=== PATIENT | male | born 1945 | race Caucasian/White ===

== ENCOUNTER 2018-06-06 10:48 | Emergency (ER) | payer OTHER ==
--- NOTE | 2018-06-06 11:19 | CPEKG ---
Test Reason : OPEN Blood Pressure : / mmHG Vent. Rate : 060 BPM Atrial Rate : 059 BPM P-R Int : 155 ms QRS Dur : 100 ms QT Int : 399 ms P-R-T Axes : 062 099 064 degrees QTc Int : 399 ms Sinus rhythm Consider right ventricular hypertrophy Confirmed by Kp Mayer ([id number]) on 06/06/2018 11:19:23 AM Referred By: Confirmed By:Kp Mayer
[2018-06-06 11:27] LABS: PLATELET COUNT 263 10^3/uL (150-400)
[2018-06-06 11:34] LABS: INR 1.02 (0.83-1.16); PROTIME(PATIENT) 13.6 SEC (12.0-15.0)
--- NOTE | 2018-06-06 11:39 | EDPHY ---
H & P Stated Complaint: L CP x 15 years-worse past few days--lung nodules on CT Time Seen by Provider: 06/06/18 11:16 HPI/ROS: CHIEF COMPLAINT: Pleuritic chest pain HISTORY OF PRESENT ILLNESS: Patient is a 73-year-old who comes to the emergency department complaining of pleuritic chest pain for the last 3 and half days. He did have a viral type infection about 3 weeks ago that is now improved however he does have a dry cough. No shortness of breath but does have pain with deep inspiration. It is not worsened by exertion. No nausea vomiting. He reports that he has a history of chronic chest pain for the last several decades. He has had multiple cardiac workups all of which have been negative. He had a CT of his chest a few months ago on reports that he had some pulmonary nodules but nothing else significant. He states however that his chronic pain worsens slightly on Monday. No fevers. No recent travel. No leg pain or swelling. Severity: Mild Modifying factors: Worse with deep inspiration REVIEW OF SYSTEMS: Constitutional: denies: chills, fever, recent illness, recent injury EENTM: denies: blurred vision, double vision, nose congestion Respiratory: denies: cough, shortness of breath Cardiac: denies: chest pain, irregular heart rate, lightheadedness, palpitations Gastrointestinal/Abdominal: denies: abdominal pain, diarrhea, nausea, vomiting, blood streaked stools Genitourinary: denies: dysuria, frequency, hematuria, pain Musculoskeletal: denies: joint pain, muscle pain Skin: denies: lesions, rash, jaundice, bruising Neurological: denies: headache, numbness, paresthesia, tingling, dizziness, weakness Hematologic/Lymphatic: denies: blood clots, easy bleeding, easy bruising Immunologic/allergic: denies: HIV/AIDS, transplant 10 systems reviewed and negative except as noted EXAM: GENERAL: Well-appearing, well-nourished and in no acute distress. Reading a novel HEAD: Atraumatic, normocephalic. EYES: Pupils equal round and reactive to light, extraocular movements intact, sclera anicteric, conjunctiva are normal. ENT: TMs normal, nares patent, oropharynx clear without exudates. Moist mucous membranes. NECK: Normal range of motion, supple without lymphadenopathy or JVD. LUNGS: Breath sounds clear to auscultation bilaterally and equal. No wheezes rales or rhonchi. HEART: Regular rate and rhythm without murmurs, rubs or gallops. Chest pain not reproducible with palpation. ABDOMEN: Soft, nontender, normoactive bowel sounds. No guarding, no rebound. No masses appreciated. BACK: No CVA tenderness, no spinal tenderness, step-offs or deformities EXTREMITIES: Normal range of motion, no pitting or edema. No clubbing or cyanosis. NEUROLOGICAL: Cranial nerves II through XII grossly intact. Normal speech, normal gait. 5/5 strength, normal movement in all extremities, normal sensation , normal reflexes PSYCH: Normal mood, normal affect. SKIN: Warm, dry, normal turgor, no visible rashes or lesions. Source: Patient Exam Limitations: No limitations - Medical/Surgical History Hx Asthma: No Hx Chronic Respiratory Disease: No Hx Diabetes: No Hx Cardiac Disease: No Hx Renal Disease: No Hx Cirrhosis: No Hx Alcoholism: No Hx HIV/AIDS: No Hx Splenectomy or Spleen Trauma: No Other PMH: BPH. bipolar - Family History Significant Family History: No pertinent family hx - Social History Smoking Status: Never smoked Alcohol Use: Sober Drug Use: None Constitutional: Initial Vital Signs Temperature (C) 36.7 C 06/06/18 10:51 Heart Rate 68 06/06/18 10:51 Respiratory Rate 16 06/06/18 10:51 Blood Pressure 139/70 H 06/06/18 10:51 O2 Sat (%) 97 06/06/18 10:51 O2 Delivery Mode Room Air Allergies/Adverse Reactions: No Known Allergies Allergy (Unverified 06/06/18 10:50) Home Medications: Medication Instructions Recorded Azithromycin [Zithromax] 250 mg PO DAILY #6 tab 06/06/18 Finasteride 06/06/18 Levothyroxine 06/06/18 [place] Carbonate 06/06/18 Wellbutrin Sr 06/06/18 Medical Decision Making - Diagnostics EKG Interpretation: An EKG obtained and was read and documented in trace view. Please see trace view for full reading and report. Sinus rhythm, no acute ischemic changes, no signs of right heart strain Imaging: Discussed imaging studies w/ call center nurse Radiologist ED Course/Re-evaluation: Patient's lab work is reassuring. His x-rays consistent with mild bronchitis. This fits with his pleuritic pain and slightly elevated white count. He states he has had a persistent cough productive of white sputum. I suspect that this is post viral or viral but have agreed to prescribe him a course of azithromycin if his symptoms worsen or do not improve. He is happy with this plan and declines further workup or testing at this time. He is eager to go home. Differential Diagnosis: Partial list of the Differential diagnosis considered include but were not limited to; bronchitis, pleurisy, musculoskeletal pain and although unlikely based on the history and physical exam, I also considered PE, dissection, pneumothorax, pneumonia, acute coronary disease. I discussed these differential diagnoses and the plan with the patient as well as the usual and expected course. The patient understands that the diagnosis is provisional and that in medicine we are not always correct and that further workup is often warranted. Usual and customary warnings were given. All of the patient's questions were answered. The patient was instructed to return to the emergency department should the symptoms at all worsen or return, otherwise to followup with the physician as we discussed. - Data Points Laboratory Results: Laboratory Results 06/06/18 11:01 06/06/18 11:01 Point of Care Test Results: Chemistry 06/06/18 11:17 POC Troponin I 0.00 ng/mL ng/mL (0.00-0.08) Departure - Departure Disposition: Home, Routine, Self-Care Clinical Impression: Bronchitis Condition: Fair Instructions: Acute Bronchitis (ED) Referrals: NONE *PRIMARY CARE P,. [Primary Care Provider] - As per Instructions Prescriptions: Azithromycin [Zithromax] 250 mg PO DAILY #6 tab
[2018-06-06 13:54] VITALS: BP 123/56
== END 2018-06-06 13:57 | disposition home or self-care (01) ==
DX: J40 Bronchitis, not specified as acute or chronic (principal)
CPT/HCPCS: 84484-PO

== ENCOUNTER 2018-10-08 00:32 | Observation (INO) | payer OTHER ==
[2018-10-08 01:29] LABS: PLATELET COUNT 217 10^3/uL (150-400)
[2018-10-08] MEDS ORDERED: ONDANSETRON 4 MG/2 ML VIAL IVP ONE (01:38)
[2018-10-08] MEDS ORDERED: HYDROmorphONE/DILAUDID 2 MG/ML INJ IVP ONE (01:38)
[2018-10-08] MEDS ORDERED: NS 1,000 ML IV ONE (01:38)
[2018-10-08] MEDS ORDERED: IOPAMIDOL (ISOVUE-300) 100 ML BTL ONE (01:50)
--- NOTE | 2018-10-08 03:18 | EDPHY ---
H & P Stated Complaint: ABD PAIN @2030 Time Seen by Provider: 10/08/18 01:06 HPI/ROS: HPI The patient presents with abdominal pain which began at about 8:30 p.m. Tonight and started fairly suddenly. The patient ate dinner in between 6 and 630. At about 8:30 p.m. he developed dull diffuse abdominal pain which was achy in nature and constant. It was fairly severe, associated with nausea and small amount of vomiting. He tried to have a bowel movement, though was only able to have a small 1. He called 911 and received fentanyl in route with some improvement in his symptoms. However, now that he has been in the emergency department for about 45 min, his pain has returned. He has no prior history of similar. He has not had a fever. He had been feeling well earlier in the day.. REVIEW OF SYSTEMS 10 systems were reviewed and negative with the exception of the elements mentioned in the history of present illness. PMHx: BPH, history of depression Soc Hx: [facility]oused, [facility] patient, no drug use, no smoking PHYSICAL General Appearance: Alert, no distress Eyes: Pupils equal and round no pallor or injection ENT, Mouth: Mucous membranes moist Respiratory: There are no retractions, lungs are clear to auscultation Cardiovascular: Regular rate and rhythm Gastrointestinal: Abdomen is slightly distended with guarding and tenderness in the right upper quadrant and right lower quadrant Neurological: A&O, moves all extremities Skin: Warm and dry, no rashes Musculoskeletal: Neck is supple non tender Extremities: symmetrical, full range of motion Psychiatric: Patient is oriented X 3, there is no agitation Source: Patient Exam Limitations: No limitations - Personal History Current Tetanus/Diphtheria Vaccine: Unsure - Medical/Surgical History Hx Asthma: No Hx Chronic Respiratory Disease: No Hx Diabetes: No Hx Cardiac Disease: No Hx Renal Disease: No Hx Cirrhosis: No Hx Alcoholism: No Hx HIV/AIDS: No Hx Splenectomy or Spleen Trauma: No Other PMH: BPH. bipolar. depression. appy - Social History Smoking Status: Never smoked Constitutional: Initial Vital Signs Temperature (C) 36.3 C 10/08/18 00:33 Heart Rate 51 L 10/08/18 00:33 Respiratory Rate 20 10/08/18 00:33 Blood Pressure 135/73 H 10/08/18 00:33 O2 Sat (%) 97 10/08/18 00:33 O2 Delivery Mode Room Air Allergies/Adverse Reactions: No Known Allergies Allergy (Unverified 06/06/18 10:50) Home Medications: Medication Instructions Recorded Finasteride 06/06/18 Levothyroxine 06/06/18 [place] Carbonate 06/06/18 Wellbutrin Sr 06/06/18 Flonase Nasal [place] 10/08/18 Trospium Chloride 10/08/18 Medical Decision Making - Diagnostics Imaging Results: CT abdomen and pelvis with IV contrast demonstrates cholelithiasis with without gross inflammation of gallbladder, 3 mm pulmonary nodule in the left lower lobe , interpreted by direct Radiology. Imaging: Discussed imaging studies w/ on call pharmacy technician Radiologist Differential Diagnosis: 73-year-old man presents with several hours of dull abdominal pain associated with nausea and vomiting. On exam, he is mostly tender in the right side of his abdomen with guarding. Differential diagnosis includes cholecystitis, appendicitis, diverticulitis, less likely AAA. In the emergency department, labs were checked and did reveal a leukocytosis. Liver tests were normal. Patient received additional Dilaudid and Zofran with some improvement in his symptoms. CT scan revealed gallstones, thus right upper quadrant ultrasound was performed. This was consistent with cholecystitis. Patient was reassessed, his pain persists. I feel he should be admitted for cholecystitis. Case discussed with Dr. Guadarrama of surgery. Patient given antibiotics. Bed was ordered for the patient and he was kept NPO. - Data Points Laboratory Results: Laboratory Results 10/07/18 22:10 10/07/18 01:24 10/08/18 10/07/18 10/07/18 01:20 22:10 01:40 WBC 15.86 10^3/uL H 10^3/uL (3.80-9.50) RBC 4.33 10^6/uL L 10^6/uL (4.40-6.38) Hgb 13.9 g/dL g/dL (13.7-17.5) Hct 41.2 % % (40.0-51.0) MCV 95.2 fL fL (81.5-99.8) MCH 32.1 pg pg (27.9-34.1) MCHC 33.7 g/dL g/dL (32.4-36.7) RDW 12.6 % % (11.5-15.2) Plt Count 217 10^3/uL 10^3/uL (150-400) MPV 10.2 fL fL (8.7-11.7) Neut % (Auto) 77.4 % H % (39.3-74.2) Lymph % (Auto) 14.4 % L % (15.0-45.0) [place] % (Auto) 5.8 % % (4.5-13.0) Eos % (Auto) 1.3 % % (0.6-7.6) Baso % (Auto) 0.3 % % (0.3-1.7) Nucleat RBC Rel Count 0.0 % % (0.0-0.2) Absolute Neuts (auto) 12.27 10^3/uL H 10^3/uL (1.70-6.50) Absolute Lymphs (auto) 2.28 10^3/uL 10^3/uL (1.00-3.00) Absolute Monos (auto) 0.92 10^3/uL H 10^3/uL (0.30-0.80) Absolute Eos (auto) 0.21 10^3/uL 10^3/uL (0.03-0.40) Absolute Basos (auto) 0.05 10^3/uL 10^3/uL (0.02-0.10) Absolute Nucleated RBC 0.00 10^3/uL 10^3/uL (0-0.01) Immature Gran % 0.8 % % (0.0-1.1) Immature Gran # 0.13 10^3/uL H 10^3/uL (0.00-0.10) Sodium Potassium Chloride Carbon Dioxide Anion Gap BUN Creatinine Estimated GFR Glucose Calcium Total Bilirubin 0.4 mg/dL mg/dL (0.1-1.4) Conjugated Bilirubin 0.3 mg/dL mg/dL (0.0-0.5) Unconjugated Bilirubin 0.1 mg/dL mg/dL (0.0-1.1) AST 32 IU/L IU/L (17-59) ALT 47 IU/L IU/L (21-72) Alkaline Phosphatase 81 IU/L IU/L (38-126) Total Protein 6.9 g/dL g/dL (6.3-8.2) Albumin 4.0 g/dL g/dL (3.5-5.0) Lipase 116 IU/L IU/L (23-300) Urine Color YELLOW Urine Appearance CLEAR Urine pH 6.0 (5.0-7.5) Ur Specific [place] 1.016 (1.002-1.030) Urine Protein NEGATIVE (NEGATIVE) Urine Ketones TRACE H (NEGATIVE) Urine Blood NEGATIVE (NEGATIVE) Urine Nitrate NEGATIVE (NEGATIVE) Urine Bilirubin NEGATIVE (NEGATIVE) Urine Urobilinogen NEGATIVE EU EU (0.2-1.0) Ur Leukocyte Esterase NEGATIVE (NEGATIVE) Urine RBC 1-3 /hpf /hpf (0-3) Urine WBC 1-3 /hpf /hpf (0-3) Ur Epithelial Cells TRACE /lpf /lpf (NONE-1+) Urine Mucus TRACE /lpf /lpf (NONE-1+) Urine Glucose NEGATIVE (NEGATIVE) 10/07/18 01:24 WBC RBC Hgb Hct MCV MCH MCHC RDW Plt Count MPV Neut % (Auto) Lymph % (Auto) [place] % (Auto) Eos % (Auto) Baso % (Auto) Nucleat RBC Rel Count Absolute Neuts (auto) Absolute Lymphs (auto) Absolute Monos (auto) Absolute Eos (auto) Absolute Basos (auto) Absolute Nucleated RBC Immature Gran % Immature Gran # Sodium 137 mEq/L mEq/L (135-145) Potassium 3.8 mEq/L mEq/L (3.5-5.2) Chloride 107 mEq/L mEq/L (97-110) Carbon Dioxide 21 mEq/l L mEq/l (22-31) Anion Gap 9 mEq/L mEq/L (6-14) BUN 13 mg/dL mg/dL (7-23) Creatinine 1.0 mg/dL mg/dL (0.7-1.3) Estimated GFR > 60 Glucose 136 mg/dL H mg/dL (70-100) Calcium 9.7 mg/dL mg/dL (8.5-10.4) Total Bilirubin Conjugated Bilirubin Unconjugated Bilirubin AST ALT Alkaline Phosphatase Total Protein Albumin Lipase Urine Color Urine Appearance Urine pH Ur Specific [place] Urine Protein Urine Ketones Urine Blood Urine Nitrate Urine Bilirubin Urine Urobilinogen Ur Leukocyte Esterase Urine RBC Urine WBC Ur Epithelial Cells Urine Mucus Urine Glucose Medications Given: Discontinued Medications Hydromorphone HCl (Dilaudid) 0.5 mg IVP EDNOW ONE Stop: 10/08/18 01:39 Last Admin: 10/08/18 01:48 Dose: 0.5 mg Hydromorphone HCl (Dilaudid) 0.5 mg IVP EDNOW ONE Stop: 10/08/18 05:48 Last Admin: 10/08/18 05:49 Dose: 0.5 mg Sodium Chloride (Ns) 1,000 mls @ 0 mls/hr IV EDNOW ONE; Wide Open PRN Reason: Protocol Stop: 10/08/18 01:39 Last Admin: 10/08/18 01:48 Dose: 1,000 mls Ceftriaxone Sodium/Dextrose (Rocephin 1 Gm (Premix)) 50 mls @ 100 mls/hr IV EDNOW ONE PRN Reason: Protocol Stop: 10/08/18 06:00 Last Admin: 10/08/18 05:48 Dose: 50 mls Metronidazole/Sodium Chloride (Flagyl 500 Mg (Premix)) 100 mls @ 100 mls/hr IV EDNOW ONE PRN Reason: Protocol Stop: 10/08/18 06:30 Last Admin: 10/08/18 06:03 Dose: 100 mls Ondansetron HCl (Zofran) 4 mg IVP EDNOW ONE Stop: 10/08/18 01:39 Last Admin: 10/08/18 01:48 Dose: 4 mg Departure - Departure Disposition: [facility] Inpatient Acute Clinical Impression: Acute cholecystitis Condition: Fair Referrals: NONE *PRIMARY CARE P,. [Primary Care Provider] - As per Instructions
[2018-10-08] MEDS ORDERED: HYDROmorphONE/DILAUDID 1 MG/ML INJ ONE (05:44)
[2018-10-08] MEDS ORDERED: NS 1,000 ML IV SCH (05:45)
[2018-10-08] MEDS ORDERED: HYDROmorphONE/DILAUDID 1 MG/ML INJ IVP ONE (05:47)
[2018-10-08] MEDS ORDERED: BUPIVACAINE 0.5% 30 ML SDV ONE (08:06)
[2018-10-08] MEDS ORDERED: ceFAZolin 1 GM/5 ML SYR ONE (08:07)
[2018-10-08] MEDS ORDERED: HEPARIN 1000 UNIT/1 ML MDV ONE (08:08)
[2018-10-08] MEDS ORDERED: HYDROmorphONE/DILAUDID 6 MG/30 ML PCA IV PRN (08:35)
[2018-10-08] MEDS ORDERED: NALOXONE HCL 0.4 MG/ML INJ IVP PRN ×2 (08:35→09:35)
[2018-10-08] MEDS ORDERED: ONDANSETRON DISINTEGRATING 4 MG TAB PO PRN (08:36)
[2018-10-08] MEDS ORDERED: ONDANSETRON 4 MG/2 ML VIAL IVP PRN ×2 (08:37→09:35)
--- NOTE | 2018-10-08 08:41 | SOAPPROG ---
[facility] Progress Note Assessment/Plan: Assessment: 73 MALE WITH ACUTE CHOLECYSTITIS AND MULTIPLE STONES/ WBC 16K/ LFTS OK TENDER RUQ/ CHEST CLEAR/ COR RR PHX TURP ALL NO MEDS RISKS AND OPTIONS FULLY DISCUSSED Plan:LAP STEPHEN 10/08/18 08:38 Objective: Vital Signs Temp Pulse Resp BP Pulse Ox 36.6 C 56 L 16 130/67 H 96 10/08/18 08:11 10/08/18 08:11 10/08/18 08:11 10/08/18 08:11 10/08/18 08:11 ICD10 Worksheet Patient Problems: Problems Problem Status Onset Acute cholecystitis Acute
[2018-10-08] MEDS ORDERED: LR 1,000 ML IV ONE (08:45)
[2018-10-08] MEDS ORDERED: PROPOFOL 200 MG/20 ML VIAL ONE (09:10)
[2018-10-08] MEDS ORDERED: PROPOFOL/EMULSION 500 MG/50 ML BOTTLE IV ONE (09:10)
[2018-10-08] MEDS ORDERED: fentaNYL 100 MCG/2 ML INJ ONE (09:10)
[2018-10-08] MEDS ORDERED: REMIFENTANIL HCL 1 MG VIAL ONE (09:10)
[2018-10-08] MEDS ORDERED: LIDOCAINE 2% 2 ML INJ ONE ×2 (09:13)
[2018-10-08] MEDS ORDERED: DEXAMETHASONE 4 MG/ML VIAL ONE (09:15)
--- NOTE | 2018-10-08 09:18 | GHP ---
[f rep st] PREOP HISTORY AND PHYSICAL DATE OF ADMISSION: 10/08/2018 The patient is a 73-year-old male who was admitted with acute cholecystitis. He has had pain for 12 hours, localized in the right upper quadrant, brought on by eating. He was nauseated and had some em esis initially. He has never had this pain before, but the ultrasound shows multiple gallstones with thickened gallbladder. CT scan of the abdomen shows no other abnormalities except for the gallbladd er. LFTs are normal. White count is 16,000. He is admitted at this time for laparoscopic cholecyst ectomy. Risks and options have been fully discussed and he wishes to proceed with surgery. PAST MEDICAL HISTORY: Includes some depression and BPH. He has had a TURP. REVIEW OF SYSTEMS: Negative on a full 10-point review except as related to the HPI. SOCIAL HISTORY: He is a who is housed at the [facility]. He is a nonsmoker. ALLERGIES: Gluten. MEDICATIONS: Flomax, thyroid, lithium, Wellbutrin, Flonase, and trospium. PHYSICAL EXAMINATION: GENERAL: An alert, cooperative 73-year-old male in no acute distress. HEAD a nd NECK: Reveals no icterus. No oral lesions. No adenopathy. Pupils are normal. NECK: Supple, n ontender. CHEST: Clear and symmetric. CARDIAC: Regular rhythm. ABDOMEN: Soft. He is tender in the right upper quadrant without masses or guarding. EXTREMITIES: Reveal full range of motion, full pulses. NEUROLOGIC: Appears to be physiologic and symmetric. PSYCH: Reveals him to be alert, cadence ented, and cooperative. IMPRESSION: Acute cholecystitis and cholelithiasis. PLAN: Laparoscopic cholecystectomy. Again, risks and options fully discussed. He wishes to proceed . /[id number]/MODL
--- NOTE | 2018-10-08 09:22 | PDANEPAE ---
ANE Past Medical History - Cardiovascular History Hx Hypertension: No Hx Arrhythmias: No Hx Chest Pain: No Hx Coronary Artery / Peripheral Vascular Disease: No Hx CHF / Valvular Disease: No Hx Palpitations: No - Pulmonary History Hx COPD: No Hx Asthma/Reactive Airway Disease: No Hx Recent Upper Respiratory Infection: No Hx Oxygen in Use at Home: No Hx Sleep Apnea: No - Neurologic History Hx Cerebrovascular Accident: No Hx Seizures: No Hx Dementia: No - Endocrine History Hx Diabetes: No Hypothyroid: Yes Hyperthyroid: No Obesity: no - Renal History Hx Renal Disorders: No - Neurological & Psychiatric Hx Hx Neurological and Psychiatric Disorders: Yes Neurological / Psychiatric History Comment: depression - Other Health History Other Health History: h/o BPH. chronic LBP - Surgical History Prior Surgeries: TURP ANE Review of Systems Review of Systems: - Exercise capacity Exercise capacity: >=4 METS ANE Patient History - Allergies Allergies/Adverse Reactions: gluten Allergy (Verified 10/08/18 07:42) Milk Containing Products [dairy] Allergy (Verified 10/08/18 07:42) - Home Medications Home Medications: Finasteride [Proscar 5 MG (*)] 5 mg PO DAILY 06/06/18 [Last Taken 10/07/18] Levothyroxine [Synthroid 50 mcg (*)] 50 mcg PO DAILY06 06/06/18 [Last Taken ] [place] Carbonate 150 mg PO 5XD 06/06/18 [Last Taken 10/07/18 09:00] buPROPion XL [Wellbutrin 150mg XL] 300 mg PO DAILY 06/06/18 [Last Taken 10/07/18 ] Fluticasone Nasal [Flonase Nasal [place] (RX)] 2 sprays NASAL DAILY 10/08/18 [ Last Taken 10/07/18] Gabapentin [Neurontin 300 MG (*)] 300 mg PO BID 10/08/18 [Last Taken 10/07/18 09 :00] Herbals/Supplements -Info Only 1 ea PO DAILY 10/08/18 [Last Taken Unknown] Loratadine [Claritin 10 mg] 10 mg PO DAILY 10/08/18 [Last Taken 10/07/18] [place]-3 Fatty Acids [Fish Oil 1000 mg (*)] 1,000 mg PO BID@10/08/18 [Last Taken 10/07/18 09:00] Trospium Chloride [Trospium Chloride ER] 60 mg PO DAILY 10/08/18 [Last Taken ] - NPO status NPO Since - Liquids (Date): 10/07/18 NPO Since - Liquids (Time): 18:00 NPO Since - Solids (Date): 10/07/18 NPO Since - Solids (Time): 18:00 - Smoking Hx Smoking Status: Never smoked ANE Labs/Vital Signs - Labs Result Diagrams: 10/07/18 22:10 10/07/18 01:24 - Vital Signs Blood Pressure: 130/67 Heart Rate: 56 Respiratory Rate: 16 O2 Sat (%): 96 Height: 180.34 cm Weight: 73.482 kg ANE Anesthesia Plan Anesthesia Plan: general endotracheal anesthesia Total IV Anesthesia: No
[2018-10-08] MEDS ORDERED: oxyCODONE IR 5 MG TAB PO PRN (09:35)
[2018-10-08] MEDS ORDERED: fentaNYL 100 MCG/2 ML INJ IVP PRN (09:35)
[2018-10-08] MEDS ORDERED: PROMETHAZINE HCL 25 MG/ML INJ IVP PRN (09:35)
[2018-10-08] MEDS ORDERED: LR 500 ML IV PRN (09:35)
[2018-10-08] MEDS ORDERED: MEPERIDINE 25 MG/0.5 ML AMP IVP PRN (09:35)
[2018-10-08] MEDS ORDERED: ACETAMINOPHEN 500 MG TAB PO PRN (09:35)
[2018-10-08] MEDS ORDERED: HYDROmorphONE/DILAUDID 1 MG/ML INJ IVP PRN ×2 (09:35→10:11)
[2018-10-08] MEDS ORDERED: HYDROCODONE/APAP 5/325 TAB PO PRN (09:35)
[2018-10-08] MEDS ORDERED: PHENYLEPHRINE HCL 100 MCG/ML SYR IVP PRN (09:35)
[2018-10-08] MEDS ORDERED: KETOROLAC 30 MG/1 ML SDV ONE (09:45)
[2018-10-08] MEDS ORDERED: SUGAMMADEX SODIUM 200 MG/2 ML VIAL IVP ONE (09:49)
--- NOTE | 2018-10-08 10:08 | POSTOPPROG ---
Post Op Note Date of Operation: 10/08/18 Surgeon: Luis Carlos Guadarrama Clock And Watch Assembler: Cathie Leonard Anesthesiologist: Kenneth Erwin Anesthesia: GET(General Endotracheal) Pre-op Diagnosis: cholelithiasis, acute cholecystitis Post-op Diagnosis: same Procedure: lap demetrio Findings: multiple large stones Inf/Abcess present in the surg proc area at time of surgery?: Yes Depth: Organ Space EBL: 50-100 Complications: none Bowel Protocol: N/A Clean Closure Performed: N/A Specimen(s): gallbladder to path and swab for culture
[2018-10-08] MEDS: OXYCODONE/APAP 5/325 TAB PO PRN ×2 (12:41→16:59)
[2018-10-08] MEDS: CETIRIZINE 10 MG TAB PO SCH (17:36)
[2018-10-08] MEDS: FINASTERIDE 5 MG TAB PO SCH (17:36)
[2018-10-08] MEDS: buPROPion XL 150 MG TAB PO SCH (17:36)
[2018-10-08] MEDS: FLUTICASONE NASAL 120 SPRAYS/16 GM MDI EACHNARE SCH (17:37)
[2018-10-08] MEDS: GABAPENTIN 300 MG CAP PO SCH ×2 (17:37→20:51)
[2018-10-08] MEDS: LITHIUM CARBONATE 300 MG TAB PO SCH ×3 (17:38→20:51)
--- NOTE | 2018-10-08 22:08 | SOAPPROG ---
SOAP Progress Note Assessment/Plan: Assessment: 73 MALE WITH ACUTE CHOLECYSTITIS AND MULTIPLE STONES/ WBC 16K/ LFTS OK TENDER RUQ/ CHEST CLEAR/ COR RR PHX TURP ALL NO MEDS RISKS AND OPTIONS FULLY DISCUSSED Plan:LAP STEPHEN 10/08/18 08:38 10/08/18 22:07 POST-OP ALERT, VS STABLE/ WOUNDS OK/ ABD SOFT/ EATING HOME IN AM Objective: Vital Signs Temp Pulse Resp BP Pulse Ox 36.6 C 77 17 112/54 L 95 10/08/18 19:39 10/08/18 19:39 10/08/18 19:39 10/08/18 19:39 10/08/18 19:39 Microbiology 10/08/18 10:03 Gram Stain - Final Gallbladder - Eswab 10/07/18 10/08/18 10/09/18 05:59 05:59 05:59 Intake Total 2950 Output Total 865 Balance 2085 ICD10 Worksheet Patient Problems: Problems Problem Status Onset Acute cholecystitis Acute
[2018-10-09] MEDS: LITHIUM CARBONATE 300 MG TAB PO SCH ×3 (05:48→11:10)
[2018-10-09] MEDS ORDERED: LEVOTHYROXINE 50 MCG TAB PO SCH (06:00)
[2018-10-09] MEDS: buPROPion XL 150 MG TAB PO SCH (08:00)
[2018-10-09] MEDS: FINASTERIDE 5 MG TAB PO SCH (08:00)
[2018-10-09] MEDS: GABAPENTIN 300 MG CAP PO SCH (08:01)
[2018-10-09] MEDS: CETIRIZINE 10 MG TAB PO SCH (08:01)
[2018-10-09] MEDS: OXYCODONE/APAP 5/325 TAB PO PRN (08:01)
[2018-10-09 08:31] VITALS: BP 113/61
--- NOTE | 2018-10-09 08:54 | SOAPPROG ---
SOAP Progress Note Assessment/Plan: Assessment/Plan: 73 Y M s/p lap demetrio, POD#1. Doing well. Tolerating diet. Getting IV abx this am. D/c to home today c augmentin, pain meds, and outpatient f/u. Seen with Dr. Guadarrama and RN. S: pain controlled. ate meatloaf last night. O: alert, nad mmm, no jaundice no wob abd soft wounds intact 10/09/18 08:52 Objective: Vital Signs Temp Pulse Resp BP Pulse Ox 36.6 C 56 L 16 113/61 92 10/09/18 08:00 10/09/18 08:00 10/09/18 08:00 10/09/18 08:00 10/09/18 08:00 Microbiology 10/08/18 10:03 Gram Stain - Final Gallbladder - Eswab 10/08/18 10/09/18 10/10/18 05:59 05:59 05:59 Intake Total 2950 200 Output Total 1065 Balance 1885 200 ICD10 Worksheet Patient Problems: Problems Problem Status Onset Acute cholecystitis Acute
--- NOTE | 2018-10-09 09:32 | ASMTLACE ---
[facility] Length of stay for Answers: 2 days current admission Acuity / Level of Answers: Yes Care: Did the patient have an inpatient admission? Comorbidities - select Answers: Other Notes: Hypothyroid all that apply # of Emergency department Answers: 1-2 visits in the last 6 months Social determinants Answers: Mental health diagnosis (anxiety, depression, pers onality disorders, etc.) Score: 10 Date Signed: 10/09/2018 09:31 AM Electronically Signed By:KEIRA Odonnell
--- NOTE | 2018-10-09 09:37 | ASMTCMCOM ---
CM Note CM Note Notes: Pt s/p lap demetrio, pt doing well and tolerating diet according to progress note. No therapies needed/ordered. Pt medically stable for d/c, no CM d/c needs identified. Date Signed: 10/09/2018 09:35 AM Electronically Signed By:KEIRA Odonnell
[2018-10-09] MEDS: FLUTICASONE NASAL 120 SPRAYS/16 GM MDI EACHNARE SCH (10:20)
--- NOTE | 2018-10-11 03:57 | GOP ---
[f rep st] OPERATIVE REPORT DATE OF OPERATION: 10/08/2018 SURGEON: Luis Carlos Guadarrama MD STOCK LIFTER: Cathie Leonard PA-C. ANESTHESIOLOGIST: Ariel Erwin DO. PREOPERATIVE DIAGNOSIS: Acute cholecystitis and cholelithiasis. POSTOPERATIVE DIAGNOSIS: Acute cholecystitis and cholelithiasis. PROCEDURE PERFORMED: Laparoscopic cholecystectomy. FINDINGS: Patient was found to have multiple large stones and acute cholecystitis. ESTIMATED BLOOD LOSS: Negligible. DESCRIPTION OF PROCEDURE: Patient was taken to the operating room where he received a satisfactory g eneral endotracheal anesthesia by Dr. Erwin. He was placed in the supine position, prepped and draped in the usual sterile fashion. A periumbilical incision was made, a Veress needle inserted. Pneumoperitoneum was established. Trocar was introduced, laparoscope introduced. Good visualization was obtained. Three other trocars were placed in the upper abdomen under direct vision. The gallbl adder was elevated up. It was markedly thickened and inflamed. Adhesions were taken down. The cyst ic triangle was carefully exposed, was dissected free. The cystic duct and cystic artery were isolat ed. A good clear view was obtained. Both structures were multiply hemoclipped and divided with care to avoid injury to the common bile duct, which was clearly visualized. The peritoneum over the gall bladder was incised. The gallbladder was easily dissected free from the hepatic fossa and then extra cted through upper midline port site. Hemostasis was assured. The wound was irrigated. Trocars wer e removed under direct vision. Trocar sites were closed with 0 Vicryl for the fascia, 4-0 Monocryl s ubcuticular stitch for the skin. All layers were infiltrated with 0.5% Marcaine. COMPLICATIONS: No complications. DISPOSITION: Taken to the recovery room in good condition. /[id number]/MODL
--- NOTE | 2018-10-11 10:34 | POSTANESTH ---
Post Anesthetic Evaluation Cardiovascular Status: Normal, Stable Respiratory Status: Normal, Stable Level of Consciousness/Mental Status: Can Participate in Eval Pain Control: Adequate, Prn Tx Ordered Nausea/Vomiting Control: Adequate, Prn Tx Ordered Complications Possibly Related to Anesthesia: None Noted
--- NOTE | 2018-10-11 11:03 | GPROG ---
[f rep st] PROGRESS NOTE POST-ANESTHETIC EVALUATION NOTE Upon successful extubation in the operatory suite, the patient was transferred to the PACU. Full rep ort was given to the attending RN in the PACU. The patient was left in a stable cardiorespiratory co ndition. Pain control was adequate with p.r.n. treatment ordered. Overall, there were no anesthetic complications apparent. /[id number]/MODL
== END 2018-10-09 11:25 | disposition home or self-care (01) ==
LOC: EDUNIT# → INTOOBSV 05:30 → F3N 08:10
PROVIDERS: ADMIT Surgery; ATTEND Surgery
PROC: 0FT44ZZ Resection of Gallbladder, Percutaneous Endoscopic Approach (ICD-10-PCS; principal; 2018-10-08 14:30)
DX: K80.00 Calculus of gallbladder with acute cholecystitis without obstruction (principal); N40.0 Benign prostatic hyperplasia without lower urinary tract symptoms; F32.9 Major depressive disorder, single episode, unspecified; E86.9 Volume depletion, unspecified
CPT/HCPCS: 47562; 74177; 76705; 96361; 96365; 96368; 96375; 96376; 99285; G0378; J0696; J1100; J1170; J1644; J1885; J2405; J2704; J3010; Q9967